=== PATIENT | female | born 1980 | race Caucasian/White ===

== ENCOUNTER 2023-04-17 07:00 | Outpatient (CLI) | payer OTHER, SELFPAY ==
[2023-04-17 13:18] LABS: Basophils Absolute Auto 0.1 K/mm3 (0.0-0.1); Basophils Percent Auto 0.8 % (0.2-1.2); Eosinophils Absolute Auto 0.5 K/mm3 (0-0.3); Eosinophils Percent Auto 5.2 % (0-4.4); Hematocrit 39.7 % (37.0-47.0); Hemoglobin 12.9 g/dL (12.0-15.0); Immature Granulocyte Absolute 0.08 K/mm3 (0.00-0.031); Immature Granulocyte Percent A 0.8 % (0-0.5); Lymphocytes Absolute Auto 2.24 K/mm3 (0.9-3.2); Lymphocytes Percent Auto 22.1 % (18.3-44.2); Mean Corpuscular HGB Conc 32.5 g/dl (32-36); Mean Corpuscular Hemoglobin 33.2 pg (26-34); Mean Corpuscular Volume 102.3 fl (80-100); Mean Platelet Volume 10.5 fl (7.4-10.4); Monocytes Absolute Auto 0.4 K/mm3 (0.1-0.6); Monocytes Percent Auto 4.3 % (2.6-8.5); Neutrophils Absolute Auto 6.8 K/mm3 (1.3-6.7); Neutrophils Percent Auto 66.8 % (45.5-73.1); Platelet Count Result 215 k/mm3 (150-375); Red Blood Count 3.88 M/mm3 (4.2-5.4); Red Cell Distribution Width 13.3 % (11.5-14.5); White Blood Count 10.1 K/mm3 (4.5-10.0)
== END 2023-04-17 07:01 | disposition home or self-care (01) ==
LOC: ANHSURGERY 06-04 13:03
PROVIDERS: PCP Physician Assistant; Visit Provider Obstetrics & Gynecology
DX: Z01.818 Encounter for other preprocedural examination (principal); N92.6 Irregular menstruation, unspecified
CPT/HCPCS: 36415; 85025; 86850; 86900; 86901

== ENCOUNTER 2023-04-20 06:49 | Day surgery (SDC) | payer OTHER, SELFPAY ==
[2023-04-12 14:00] VITALS: BMI 28.1
--- NOTE | 2023-04-12 14:07 | PC.NURSE ---
Report to the Outpatient Waiting Room, entrance under the green pavilion located off [facility], at time 9:30 on date 04/20/23. Planned Procedure Time: 11:30. Time changes happen often and if your time is changed the preop area will call you the afternoon before. - You and your visitor will be asked to self-screen and do not enter if you have any COVID symptoms. - A mask is optional within the hospital at this time. Patients may have clear liquids (water, carbonated beverages, clear teas, apple juice) until 3 hours prior to surgery (8:30) with a maximum of 20 ounces. - No food from midnight until time of surgery Take the following medications with a SIP of water the morning of surgery: INHALER, FLUOXETINE, CONTROL, LEVOTHYROXINE DO NOT STOP ANY OF YOUR OTHER PRESCRIPTION MEDICATIONS PRIOR TO SURGERY ?EXCEPT THE FOLLOWING Medications to discontinue per physician: N/A Date to take last dose: N/A Please no make-up, nail slovenian, hairspray, perfume, deodorant, or body powder the day of surgery. No jewelry (including any body piercings) or valuables the day of surgery, leave them at home. Please take a shower or bath the night before, or the morning of, surgery with an antibacterial soap. Wear comfortable, loose fitting clothing. - Jewelry must be removed prior to entering the operating room. Rings and piercings that are not removed may be cut off. - The hospital will not accept responsibility for valuables. - Please leave all valuables, including medications, at home the day of surgery. If you are going home after surgery, a licensed restaurant delivery driver must drive you home. - NO public transportation without another adult if you receive anesthesia. - We recommend that an adult stay with you for 24 hours following discharge. - We also recommend that you do not drive, make important decision, drink alcoholic beverages, or take any drugs that were not prescribed by your health care provider for at least 24 hours after your discharge time. Follow any additional instructions given to you from your surgeon. If you or anyone in your household have experienced Covid symptoms in the past week, please notify your surgeon or the nurse liaison at the phone number below for possible testing. Telephone instructions given to PT - MIGUEL WYATT and asked if any additional questions and then verbalized understanding. Patient advised to call surgeon office or pre surgery nurse liaison [phone] if any additional questions.
--- NOTE | 2023-04-17 07:13 | P.HP_ITS ---
H&P: HPI History of Present Illness Date/Time: 04/17/23 07:13 Chief Complaint: Excessive vaginal bleeding and pelvic pain Narrative: This is a 43 4 para 4 admitted for robotic hysterectomy bilateral salpin gectomy secondary to excessive heavy bleeding and pelvic pain. She has had chronic anemia and been medications without. That include pills as well. She has had 4 previous sections and a tubal ligation and desires no further children. She opts for robotic hysterectomy and bilateral salpingectomy. Risks and benefits were reviewed including exclusive, aspiration pneumonia, bleeding, transfusion, perforation injury to bowel, bladder, ureters, or other internal organs with need for open laparotomy. She received the ACOG handout entitled hysterectomy as well as de Erinn handout. She had all questions answered. [facility] Social History Social History Smoking packs per day: 1 Smoking cigarettes per day: 20.0 Years smoked: 14 Smoking pack-years: 14.00 Smoking status: Former smoker Tobacco type: cigarettes and e-cigarettes/vaping Smoking end date: 04/05/22 Substance use: current Substance use type: marijuana Living arrangements: with family Spiritual care concerns: No Meds Home Medications and Allergies Home Medications Medication Instructions Recorded Confirmed Type budesonide-formoterol HFA 160 2 inh inhalation BID 04/12/23 04/12/23 History mcg-4.5 mcg/actuation aerosol inhaler (Symbicort) fluoxetine 40 mg capsule 40 mg PO DAILY 04/12/23 04/12/23 History levonorgestrel 0.15 mg-ethinyl 1 tablet PO DAILY 04/12/23 04/12/23 History estradiol 30 mcg tablets,3 mos pack(91) (Jolessa) levothyroxine 88 mcg tablet 88 mcg PO DAILY 04/12/23 04/12/23 History lisdexamfetamine 50 mg capsule 50 mg PO DAILY PRN ADHD 04/12/23 04/12/23 History (Vyvanse) Allergies Allergy/AdvReac Type Severity Reaction Status Date / Time Penicillins Allergy Hives Verified 04/12/23 13:58 Exam Const: General: cooperative, healthy appearing, comfortable and average body habitus Orientation/consciousness: oriented to person, oriented to place and oriented to time HENMT: Head: normal to inspection Resp: Effort & Inspection: normal respiratory effort Cardio: Rate: regular rate Rhythm: regular rhythm Heart sounds: S1 normal heart sound present and S2 normal heart sound present GI: Inspection: normal to inspection : External Female Exam: normal external appearance Speculum Exam - Vagina: normal appearance of the vagina Speculum Exam - Cervix: normal appearance of the cervix Bimanual exam- vagina & uterus: enlarged Bimanual Exam- Adnexa, other: normal adnexae Assessment and Plan Assessment and plan (1) Excessive bleeding: Code(s): R58 - Hemorrhage, not elsewhere classified Status: Acute (2) Pelvic pain: Code(s): R10.2 - Pelvic and perineal pain Status: Acute Plan Robotic total vaginal hysterectomy and bilateral salpingectomy
--- NOTE | 2023-04-19 14:53 | P.PNAN_ITS ---
Anes - Initial Pre Proc Eval Procedure: Operation Date: 04/20/23 11:30 Proposed Procedures p Robotic Assisted Total Vaginal Hysterectomy with Bilateral Salpingectomy - Brendon Olson MD Date/Time: 04/19/23 14:53 Surgeon: Brendon Olson MD Pre Op Diagnosis: irreg bleeding, pelvic pain, dysmenorrhea Patient Data Age: 43 Gender: F Height: 1.59 m Weight: 71 kg Allergies Allergy/AdvReac Type Severity Reaction Status Date / Time Penicillins Allergy Hives Verified 04/12/23 13:58 Home Medications Medication Instructions Recorded Confirmed Type budesonide-formoterol HFA 160 2 inh inhalation BID 04/12/23 04/12/23 History mcg-4.5 mcg/actuation aerosol inhaler (Symbicort) fluoxetine 40 mg capsule 40 mg PO DAILY 04/12/23 04/12/23 History levonorgestrel 0.15 mg-ethinyl 1 tablet PO DAILY 04/12/23 04/12/23 History estradiol 30 mcg tablets,3 mos pack(91) (Jolessa) levothyroxine 88 mcg tablet 88 mcg PO DAILY 04/12/23 04/12/23 History lisdexamfetamine 50 mg capsule 50 mg PO DAILY PRN ADHD 04/12/23 04/12/23 History (Jamie) hydrocodone 5 mg-acetaminophen 325 1 tablet PO Q4H PRN pain #30 tabs 04/20/23 Rx mg tablet Patient hx anesthesia problems: none Family hx anesthesia problems: none Results Review: All pre-operative results and documents have been reviewed as part of the pre- operative evaluation. PENDING SALE TO [facility] Past Medical History Medical History (Updated 04/19/23 @ 14:54 by Tae Bernal DO) ADHD Asthma Hypothyroidism Surgical History Surgical History (Updated 04/19/23 @ 14:54 by Tae Bernal DO) History of appendectomy History of History of cholecystectomy History of tubal ligation Social History Social History Smoking packs per day: 1 Smoking cigarettes per day: 20.0 Years smoked: 14 Smoking pack-years: 14.00 Smoking status: Former smoker Tobacco type: cigarettes and e-cigarettes/vaping Smoking end date: 04/05/22 Substance use: current Substance use type: marijuana Living arrangements: with family Spiritual care concerns: No Anes - Eval Final PreProcedure Day of Procedure 04/19/23 14:53 Patient weight: overweight Heart: regular rate and rhythm Lungs: clear to auscultation Airway: Mallampati scale class II Neurological: alert and oriented Last oral intake: >/= 8 hours ASA classification: III Emergent: no Anesthetic plan: proceed Anesthesia type and monitoring: general ETT and standard monitoring Results Review: All pre-operative results and documents have been reviewed as part of the pre- operative evaluation. Informed Consent: The patient's anesthetic plan and its attendant risks and benefits were discussed with the patient/family/POA. Questions were solicited and answers provided to the satisfaction of the patient/family/POA.
[2023-04-20] VITALS (8 sets, daily range): BP systolic 90–143; BP diastolic 63–76; PULSE 50–79; RESP 14–24; TEMP 36.3–37.1; O2SAT 96–100
--- NOTE | 2023-04-20 06:15 | WPDHPUPDATE1 ---
History and Physical Update Update Date/Time: 04/20/23 06:15 History and Physical has been reviewed, including an updated exam of the patient. There are NO changes in the patient's condition. Risks, benefits, and alternatives have been discussed and questions answered. Patient agrees to proceed with procedure.
[2023-04-20] MEDS: LACTATED RINGERS 1,000 ML 30 ML IV CONT ×2 (09:30→13:01)
[2023-04-20] MEDS: KETOROLAC 15 MG/ML VIAL (*BKC) IV PUSH (10:26)
[2023-04-20] MEDS: SCOPOLAMINE 1 MG PATCH 1 PATCH TRANSDERM (10:26)
[2023-04-20] MEDS: ACETAMINOPHEN 500 MG TABLET 1000 MG PO (10:26)
[2023-04-20] MEDS: ceFAZolin 2 GM/D5W 50 ML 2 GM/50 ML BAG IVPB (10:54)
[2023-04-20] MEDS: METHYLENE BLUE 0.5% INJ 10 ML AMPULE 5 ML IRRIGATION (12:06)
--- NOTE | 2023-04-20 13:05 | W.PM.PROC2 ---
Procedure Note - Detailed Date of Procedure 04/20/23 Pre-op Diagnosis irreg bleeding, pelvic pain, dysmenorrhea Post-op Diagnosis Same Procedure Performed Robotic total vaginal hysterectomy with bilateral salpingectomy/extensive lysis of adhesions. / inadvertent cystotomy with repair Surgeon Brendon Olson MD Anesthesia General Indications is a 43-year-old female with excessive heavy bleeding and pain Findings markedly enlarged uterus. Severe adhesions anteriorly. Normal-appearing ovaries. An inadvertent cystotomy was performed while ext performing extensive lysis of adhesions which was repaired. Description of Procedure Patient was prepped draped in the sterile fashion placed in dorsal lithotomy position. Under excellent general trach anesthesia placed posterior fornix vagina. Anterior lip of the cervix grasped with a single-tooth tenaculum. Uterus sounded to 11cm. Serial dilatation with fragmented dilators performed followed by passage of the 10. ORALIA and 3. 0.5 cold cup. Next the 16 Lao catheter was placed in the bladder drained clear urine. Weighted speculum was removed and the gloves were changed. Supraumbilical incision made the Veress needle passed in the abdomen. Abdomen filled with CO2 gas [id number]. The 8mm trocar advanced abdomen. Downside visualized no injury seen. Patient placed in 18? Trendelenburg and right left lateral quadrant incisions made. 8Mm trocars and advanced into the abdomen under direct visualization assuring no injury. Right upper quadrant incision was then made. The 8mm trocar advanced under direct visualization assuring no injury. The robot was docked. Attention was turned to the budget counselor. There marked amount of adhesions. The omentum was markedly adherent to where the bladder and the superior surface of the uterus was using sharp dissection this was brought down bringing the omentum away from the bladder and uterus. The left round ligament grasped, burned, cut. A bladder flap was made however the bladder was noted be markedly adherent to the anterior fundal part of the uterus. A cystotomy incision was noted. The bladder was brought down the rest the weighted opposite round ligament. Figure of sore a 3-0 Vicryl was used to close the bladder in 2 layers including and internal the closure and a followed by an external closure. Later this would be checked with methylene blue for integrity. The left fallopian tube was grasped and dissected away from the uterus cervix and the ovarian process. Let this was left attached to its uterine origin. In similar fashion the right fallopian tube was dissected away from the ovarian complex and left attached medially. The utero-ovarian ligament on the left was skeletonized clamping burning cutting and bringing this to to the previously cut round ligament. In similar fashion conserving right ovary the utero-ovarian ligament was clamped, burned, cut brought to the level of previously cut round ligament. The cardinal broad ligaments on the left were serially skeletonized clamping burning cutting until the uterine vessels could be seen on left these were individually clamped, burned, cut. In similar fashion the cardinal broad ligaments on the right were serially skeletonized clamping burning cutting and bringing this down the lateral edge of the cervix uterus until uterine vessel BC and right. These were individually clamped, burned, cut. A colpotomy incision was made cervix uterus tube removed through the vagina. The vagina then closed with continuous running 0V lock from lateral edge to lateral edge back to the midline. The bladder was then filled with 350cc of methylene blue. No leaking was seen and this was then drained with catheter. I [place] term was placed over the raw surface area. The robot was undocked and the gas removed from the abdomen after the trocars had been removed. The incisions closed 4 Monocryl and glue and the patient went to recovery in sat
[2023-04-20] MEDS: fentaNYL CITRATE INJ (*CRX) 100 MCG/2 ML VIAL 25 MCG IV PUSH ×4 (13:32→14:09)
--- NOTE | 2023-04-20 13:41 | SUR.PHASEI ---
1325: Simple mask removed.
[2023-04-20] MEDS: KETOROLAC 30 MG/ML VIAL (*BKC) IV PUSH (14:31)
[2023-04-20] MEDS: DEXTROSE 5%/LACTATED RINGERS 1,000 ML 125 ML IV CONT (14:32)
--- NOTE | 2023-04-20 14:55 | PC.NURSE ---
Patient arrived to room #288 at 1418 via stretcher accompanied by PACU staff.
[2023-04-20] MEDS: HYDROcodone/acetaminophen (*CRX) 5-325 MG TABLET 1 TAB PO (16:19)
[2023-04-20] MEDS: SIMETHICONE 80 MG TAB.CHEW PO (16:20)
--- NOTE | 2023-04-20 16:27 | PM.DS ---
DS: Admitting Diagnosis Discharge Date 04/21/23 Admitting Diagnosis pelvic pain symptomatic uterine fibroids DS: Discharge Diagnosis Discharge Diagnosis (1) Pelvic pain: Code(s): R10.2 - Pelvic and perineal pain Status: Acute (2) Excessive bleeding: Code(s): R58 - Hemorrhage, not elsewhere classified Status: Acute DS: Summary Hospital Course Reason for hospitalization: patient was admitted for hysterectomy and bilateral salpingectomy on 04/20/2023. The surgery was complicated by an inadvertent cystotomy which was closed in double layered fashion. Hospital Course: Her hospital course thereafter was unremarkable she remained afebrile. She was up, passing good urine with a catheter in. Eating regular diet, ambulating and generally thought complaints. Plan was for to continue with the catheter for 10 days at which time we will take out. Time Spent with Patient Time attestation: Total time spent providing and/or coordinating discharge services: Exam Const: General: cooperative, healthy appearing and comfortable Nutritional Appearance: average body habitus Orientation/consciousness: oriented to person, oriented to place and oriented to time HENMT: Head: normal to inspection Resp: Effort & Inspection: normal respiratory effort Cardio: Rate: regular rate Rhythm: regular rhythm Heart sounds: S1 normal heart sound present and S2 normal heart sound present GI: Inspection: normal to inspection and incision ( Wounds are clean dry and intact) DS: Data Data Completed and Pending Pending studies at discharge: Pending at discharge 04/20/23 11:32 Surgical [PTH] Routine Discharge Plan Discharge Patient Disposition: Home, Self-Care Stand Alone Forms: General Discharge Instructions Follow-up/Referrals: Brendon Dolan MD [Physician] - Discharge Medications: New hydrocodone-acetaminophen 5-325 mg tablet 1 tablet PO Q4H PRN (Reason: pain) Qty: 30 0RF No Action fluoxetine 40 mg capsule 40 mg PO DAILY levothyroxine 88 mcg tablet 88 mcg PO DAILY levonorgestrel-ethinyl estrad [Jolessa] 0.15 mg-30 mcg (91) tablets,dose pack,3 month 1 tablet PO DAILY lisdexamfetamine [Vyvanse] 50 mg capsule 50 mg PO DAILY PRN (Reason: ADHD) budesonide-formoterol [Symbicort] 160-4.5 mcg/actuation HFA aerosol inhaler 2 inh INHALATION BID
[2023-04-21 01:06] VITALS: BP 102/59; PULSE 62; RESP 18; TEMP 37.2; O2SAT 99
[2023-04-21] MEDS: HYDROcodone/acetaminophen (*CRX) 10-325 MG TABLET 1 TAB PO (01:21)
[2023-04-21 05:20] VITALS: BP 98/61; PULSE 56; RESP 18; TEMP 37.2; O2SAT 98
[2023-04-21 05:32] LABS: Basophils Percent Auto 0.3 % (0.2-1.2); Eosinophils Absolute Auto 0.2 K/mm3 (0-0.3); Eosinophils Percent Auto 1.5 % (0-4.4); Hematocrit 39.1 % (37.0-47.0); Hemoglobin 12.9 g/dL (12.0-15.0); Immature Granulocyte Percent A 0.7 % (0-0.5); Lymphocytes Absolute Auto 0.95 K/mm3 (0.9-3.2); Lymphocytes Percent Auto 6.6 % (18.3-44.2); Mean Corpuscular Hemoglobin 33.1 pg (26-34); Mean Corpuscular Volume 100.3 fl (80-100); Monocytes Absolute Auto 0.6 K/mm3 (0.1-0.6); Neutrophils Absolute Auto 12.5 K/mm3 (1.3-6.7); Neutrophils Percent Auto 86.9 % (45.5-73.1); Platelet Count Result 227 k/mm3 (150-375); White Blood Count 14.4 K/mm3 (4.5-10.0)
[2023-04-21] MEDS: HYDROcodone/acetaminophen (*CRX) 5-325 MG TABLET 1 TAB PO ×2 (05:44→09:29)
[2023-04-21] MEDS: LEVOTHYROXINE SODIUM 88 MCG TABLET PO (05:50)
[2023-04-21 07:00] VITALS: BP 110/82; PULSE 53; RESP 16; TEMP 37; O2SAT 100
--- NOTE | 2023-04-21 07:39 | PM.GYNPNOP ---
NURSE MANAGER - A/P Postoperative Procedures: Procedures Operation Date: 04/20/23 11:30 Actual Procedure Side Surgeon p Robotic Assisted Total Vaginal Hysterectomy with Bilateral Salpingectomy, Inadvertant Cystotomy and Repair, Extensive Lysis of Adhesions Bilateral Brendon Olson MD Postoperative day: 1 Postoperative status: doing well Postoperative plan: see orders, ambulate, advance diet, discharge and other ( continue Mcdaniels with leg bag 10-14 days) Time Spent With Patient Time: Total time spent is greater than 50% in coordination of care (as documented) at patient's floor/unit and/or counseling patient: Time with patient: 15 - 25 minutes NURSE MANAGER- PN:Subj Post-Op Subjective Date/time seen: 04/21/23 07:39 Subjective: patient reports feeling better, patient has no complaints, patient desires discharge, pain is well controlled and patient is tolerating oral intake Exam Const: General: cooperative, healthy appearing and comfortable Orientation/consciousness: oriented to person, oriented to place and oriented to time HENMT: Head: normal to inspection Resp: Effort & Inspection: normal respiratory effort Cardio: Rate: regular rate Rhythm: regular rhythm Heart sounds: S1 normal heart sound present and S2 normal heart sound present GI: Inspection: normal to inspection and incision (Wounds are clean dry and intact) NURSE MANAGER - PN: Obj Data Vital Signs Vital Signs: Vital Signs - 24 hr 04/20/23 10:00 04/20/23 13:01 04/20/23 13:15 Temperature 98.2 F 97.3 F L Pulse Rate 62 79 65 Respiratory Rate 16 14 20 Blood Pressure 90/63 L 142/68 H 134/69 Pulse Oximetry 100 100 100 Oxygen Delivery Room Air Simple Face Mask Simple Face Mask Oxygen Flow Rate 10 10 04/20/23 13:30 04/20/23 13:45 04/20/23 14:00 Temperature Pulse Rate 65 64 61 Respiratory Rate 19 24 H 16 Blood Pressure 132/73 143/73 H 135/76 Pulse Oximetry 99 96 98 Oxygen Delivery Room Air Room Air Room Air Oxygen Flow Rate 04/20/23 14:38 04/20/23 21:08 04/21/23 01:06 Temperature 97.3 F L 98.7 F 99.0 F Pulse Rate 64 50 L 62 Respiratory Rate 18 18 18 Blood Pressure 136/65 115/66 102/59 L Pulse Oximetry 99 100 99 Oxygen Delivery Oxygen Flow Rate 04/21/23 05:20 04/21/23 05:20 Temperature 99.0 F Pulse Rate 56 L 56 L Respiratory Rate 18 18 Blood Pressure 98/61 L Pulse Oximetry 98 98 Oxygen Delivery Room Air Oxygen Flow Rate Intake/Output Intake/Output: Intake & Output 04/18/23 04/19/23 04/20/23 04/21/23 23:59 23:59 23:59 23:59 Intake Total 1300 550 Output Total 195 625 Balance 1105 -75 Meds/Results Medications: Active Medications Generic Name Dose Route Start Last Admin Trade Name Freq PRN Reason Stop Dose Admin Hydrocodone Bitart/Acetaminophen 1 tab 04/20/23 14:12 04/21/23 01:21 Hydrocodone/Acetaminophen (*Crx) 10-325 Mg Tablet PO 1 tab Q3H PRN Administration Pain Rated 6 or Greater Hydrocodone Bitart/Acetaminophen 1 tab 04/20/23 14:12 04/21/23 05:44 Hydrocodone/Acetaminophen (*Crx) 5-325 Mg Tablet PO 1 tab Q3H PRN Administration Pain Rated 5 or Less Docusate Sodium 100 mg 04/20/23 17:00 04/20/23 21:08 Docusate Sodium 100 Mg Capsule PO Not Given BID CATARINO Enoxaparin Sodium 40 mg 04/21/23 09:00 Enoxaparin 40 Mg/0.4 Ml Syringe SUB-Q DAILY [facility] Dextrose/Lactated Ringer's 1,000 mls @ 125 mls/hr 04/20/23 14:12 04/21/23 06:47 Dextrose 5%/Lactated Ringers IV CONT Not Given .Q8H CATARINO Ibuprofen 600 mg 04/20/23 14:12 Ibuprofen 600 Mg Tablet PO Q6H PRN Cramping Ketorolac Tromethamine 30 mg 04/20/23 14:12 04/20/23 14:31 Ketorolac 30 Mg/Ml Vial (*Bkc) IV PUSH 04/25/23 14:11 30 mg Q6H PRN Administration Pain Rated 4-6 Levothyroxine Sodium 88 mcg 04/21/23 06:30 04/21/23 05:50 Levothyroxine Sodium 88 Mcg Tablet PO 88 mcg DAILY@0630 CATARINO Administration Naloxone HCl 0.1 mg 04/20/23 14:12 Naloxone Hcl 0.4 Mg/Ml V
--- NOTE | 2023-04-21 08:04 | P.PNAN_ITS ---
Anes - Prog Note Post-Op Date/Time: 04/21/23 08:04 Cardiovascular status: normal Respiratory status: normal Airway patency: baseline Mental status: baseline Post-Op hydration status: normal Vital Signs: Last Vital Signs Temp 37.2 C 04/21/23 05:20 Pulse 56 L 04/21/23 05:20 Resp 18 04/21/23 05:20 BP 98/61 L 04/21/23 05:20 Pulse Ox 98 04/21/23 05:20 O2 Del Method Room Air 04/21/23 05:20 O2 Flow Rate 10 04/20/23 13:15 Pain Score (VAS): 04/14 I/O: Intake & Output 04/20/23 04/21/23 04/21/23 23:59 07:59 15:59 Intake Total 800 550 Output Total 125 625 Balance 675 -75 Laboratory Tests 04/21/23 04:36 04/21/23 04:36 WBC 14.4 H RBC 3.90 L Hgb 12.9 Hct 39.1 MCV 100.3 H MCH 33.1 MCHC 33.0 RDW 13.0 Plt Count 227 MPV 11.0 H Immature Gran % (Auto) 0.7 H Neut % (Auto) 86.9 H Lymph % (Auto) 6.6 L [place] % (Auto) 4.0 Eos % (Auto) 1.5 Baso % (Auto) 0.3 Lymph # (Auto) 0.95 [place] # (Auto) 0.6 Eos # (Auto) 0.2 Baso # (Auto) 0.0 Abs Immat Gran (auto) 0.10 H Absolute Neuts (auto) 12.5 H Absolute Nucleated RBC 0.0 Nucleated RBC % 0.0 Post-procedural complaints: none Patient Feedback: Patient satisfied with anesthetic care.
[2023-04-21] MEDS: SIMETHICONE 80 MG TAB.CHEW PO (09:27)
[2023-04-21] MEDS: ENOXAPARIN 40 MG/0.4 ML SYRINGE SUB-Q (09:27)
[2023-04-21] MEDS: DOCUSATE SODIUM 100 MG CAPSULE PO (09:27)
[2023-04-21] MEDS: IBUPROFEN 600 MG TABLET PO (09:29)
== END 2023-04-21 10:56 | disposition home or self-care (01) ==
LOC: ANHSURGERY 14:07 → ANHOB2 14:18
PROVIDERS: PCP Physician Assistant; Visit Provider Obstetrics & Gynecology
PROC: (CPT 58552; principal; 2023-04-20 11:30)
DX: N88.8 Other specified noninflammatory disorders of cervix uteri (principal); N83.8 Other noninflammatory disorders of ovary, fallopian tube and broad ligament; D18.1 Lymphangioma, any site; D64.9 Anemia, unspecified; E03.9 Hypothyroidism, unspecified; F90.9 Attention-deficit hyperactivity disorder, unspecified type; J45.909 Unspecified asthma, uncomplicated; F12.90 Cannabis use, unspecified, uncomplicated; Z79.1 Long term (current) use of non-steroidal anti-inflammatories (NSAID); Z79.891 Long term (current) use of opiate analgesic; Z98.890 Other specified postprocedural states; Z90.49 Acquired absence of other specified parts of digestive tract; Z87.891 Personal history of nicotine dependence; N99.71 Accidental puncture and laceration of a genitourinary system organ or structure during a genitourinary system procedure
CPT/HCPCS: 58552; 51999; S2900; 36415; 85025; 88307; 99199; A9270; J0690; J1100; J1170; J1200; J1596; J1650; J1885; J2001; J2250; J2405; J2704; J3010; J7030; J7120; J7121; Q9968